=== PATIENT | male | born 1990 | race Caucasian/White ===

== ENCOUNTER 2023-09-22 18:17 | Emergency (ER) | payer SELFPAY ==
--- NOTE | ~2023-09-22 | XR_ITS ---
EXAMINATION: XR LUMBOSACRAL SPINE CLINICAL INFORMATION: Pain. COMPARISON: None available. TECHNIQUE: Three views of the lumbosacral spine. FINDINGS: S-shaped thoracolumbar curvature with right-sided apex at the level of L2. Grade 2 anterolisthesis of L4 on L5 with bilateral L4 pars defects. No evidence of acute compression deformity. Intervertebral disc height loss in the lower lumbar spine with mild facet arthropathy leading to certain degree of neural foraminal encroachment. Symmetric SI joints. No significant paraspinal soft tissue abnormality. XR/XR lumbar spine 2-3V IMPRESSION: 1. No acute compression deformity. 2. Grade 2 anterolisthesis of L4 on L5 with bilateral L4 pars defects. 3. Lower lumbar spondylosis.
[2023-09-22 18:46] VITALS: BP 125/70; PULSE 76; RESP 18; TEMP 36.6; O2SAT 96; BMI 46.2
--- NOTE | 2023-09-22 18:47 | ED_ITS ---
HPI - General Adult General Chief complaint: Back Pain/Injury Stated complaint: back pain, no injury Time Seen by Provider: 09/22/23 22:29 History of Present Illness ED Provider: Chun IRELAND narrative: The patient is a 33-year-old male who says that he has had back problems for many years. He says that he last saw someone about his back perhaps 10 years ago when he saw a chiropractor. 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 He says that sometimes he feels that pain radiates around both sides into his bladder. He has not feel that he is any bladder or bowel control problems however. He does not feel that he has any weakness or loss of sensation in his legs however. No fever, sweats, chills. Related Data Previous Rx's ?Medication ?Instructions ?Recorded cyclobenzaprine 10 mg tablet 10 mg PO TID PRN muscle spasm #14 09/22/23 tabs ibuprofen 600 mg tablet 600 mg PO Q6H PRN pain #20 tabs 09/22/23 Allergies Allergy/AdvReac Type Severity Reaction Status Date / Time No Known Allergies Allergy Verified 09/22/23 18:50 Review of Systems 2 Review of Systems: Yes all other systems are reviewed and are negative [facility] Social History Social History Advance Directives: No Advance Directives Information Provided: No Do you have a plan to hurt others: No Plan Physical Exam ED Vital Signs: Vital Signs - 24 hr 09/22/23 18:46 09/22/23 21:45 09/22/23 23:00 Temperature 98 F 97.3 F 97.3 F Pulse Rate 76 77 61 Respiratory Rate 18 16 16 Blood Pressure 125/70 117/87 124/82 Pulse Oximetry 96 99 98 Oxygen Delivery Method Room Air Room Air Room Air 09/22/23 23:19 Temperature 97.3 F Pulse Rate 61 Respiratory Rate 16 Blood Pressure 124/82 Pulse Oximetry 98 Oxygen Delivery Method Room Air BMI result Body Mass Index 46.2 Const Other: The patient is awake, alert, pleasant, cooperative. He does not appear in acute distress. HENMT Other: Face is symmetrical. Mucous membranes moist. Eyes Other: Pupils are round equal, conjunctivae are clear Neck Other: Moving his neck easily Resp Effort & Inspection: normal respiratory effort Auscultation: clear to auscultation bilaterally Cardio Rate: regular rate Rhythm: regular rhythm Heart sounds: S1 normal heart sound present and S2 normal heart sound present GI Other: Abdomen is soft and nontender Back/Spine/Pelvis Other: Diffuse bilateral lower back tenderness. Skin Other: Skin is dry and unremarkable Neuro Other: The patient is awake and alert with a normal mental status. He has intact strength and sensation in the lower extremities. He walks without footdrop. 2+ reflexes of the knees and ankles. Extrem Other: No peripheral edema Course Course Course Narrative: RME performed by Prachi Roe PA-C. Patient is a 33 year old assigned male at presenting to the emergency department with low back pain that radiates into his abdomen. Detailed physical exam and review of systems are deferred to the pre billing clinician. Labs and imaging ordered. Patient placed back in the waiting room pending room availability and results. Medical Decision Making Medical Decision Making MDM Narrative: The patient is a very pleasant 33-year-old who presents with worsening chronic low back pain. He describes bilateral low back pain that radiates down both legs. He denies any bowel or bladder control symptoms. No saddle anesthesia. He has no neurological deficits on exam. Bladder scan showed a bladder volume of 200 mL. The plain films of the lumbar spine show grade 2 anterolisthesis of L4 over L5. I suspect this may be related patient's pain syndrome. The patient is a very pleasant 33-year-old with worsening chronic low back pain. He has not exhibiting any red flags to suggest an infectious process or a neurosurgical emergency. I suspect his pain is probably related to the anterolisthesis apparent on his plain films. The patient is currently in the process of applying for [employer]. He does not have a primary care doctor. The patient is encouraged to continue his attempts at getting insurance and to get a primary care doctor. He will be given the name of Dr. Farley as I think he should see a back doctor to discuss the findings of anterolisthesis on his plain films to determine if this finding is related to his pains. The patient will be advised to use ibuprofen and acetaminophen as needed for pain. He is given a prescription for cyclobenzaprine which he may use when he has not working or driving. Lab Data 09/22/23 19:10 09/22/23 19:10 Labs: Lab Results 09/22/23 Range/Units 19:10 WBC 13.0 H (4.8-10.8) X10*3/uL RBC 4.75 (4.60-5.80) X10*6/uL Hgb 15.6 (14.0-18.0) g/dl Hct 42.7 (42.0-52.0) % MCV 89.9 (80.0-98.0) fL MCH 32.8 (27.0-33.0) pg MCHC 36.5 H (31.0-36.0) g/dl RDW 11.7 (11.0-16.0) % Plt Count 257 (160-400) X10*3/uL MPV 9.4 (9.4-12.4) fL Immature Gran % (Auto) 0.5 H (0.0-0.4) % Neut % (Auto) 62.3 (45-73) % Lymph % (Auto) 26.9 (20-40) % Ripley % (Auto) 7.3 (2-11) % Eos % (Auto) 2.5 (0-4) % Baso % (Auto) 0.5 (0-2) % Lymph # (Auto) 3.5 (1.2-4.9) X10*3/uL Ripley # (Auto) 1.0 (0.1-1.2) X10*3/uL Eos # (Auto) 0.3 (0.0-0.4) X10*3/uL Baso # (Auto) 0.1 (0.0-0.2) X10*3/uL Abs Immat Gran (auto) 0.06 H (0.00-0.03) X10*3/uL Absolute Neuts (auto) 8.1 (2.0-8.3) x10*3/uL Absolute Nucleated RBC 0.000 (0.0-0.012) X10*3/uL Nucleated RBC % (auto) 0.0 (0.0-0.2) /100WBC Sodium 141 (135-145) mmol/L Potassium 4.0 (3.3-5.1) mmol/L Chloride 110 H (96-108) mmol/L Carbon Dioxide 21 L (22-29) mmol/L Anion Gap 14 (12-20) BUN 10 (9-16) mg/dL Creatinine 0.83 (0.5-1.4) mg/dL Estim Creat Clear Calc 161.5 Estimated GFR > 60 Random Glucose 93 (60-115) mg/dL Calcium 9.4 (8.4-10.2) mg/dL Magnesium 2.0 (1.6-2.6) mg/dL Total Bilirubin 0.3 (0.0-1.0) mg/dL AST 20 (5-37) U/L ALT 19 (0-40) U/L Alkaline Phosphatase 60 (39-117) U/L Total Protein 7.2 (6.5-8.0) g/dL Albumin 4.2 (3.5-5.0) g/dL Discharge Plan Discharge Clinical Impression: Low back pain with bilateral sciatica, Anterolisthesis of lumbar spine Patient Disposition: Home, Self-Care Instructions: Acute Low Back Pain (ED), Spondylolisthesis (ED) Additional Instructions: The x-ray of your lumbar spine shows a misalignment of your L4 above your L5 vertebra called anterolisthesis. This may be part of the reason why you are having shows problems with your lower back. The most important thing for you to do is to try to get into see some kind of a back doctor. I have given you the contact information for Dr. Farley, a spine surgeon. I have also given you the number of an orthopedic office called [facility] in [place]. They have back doctors as well. Please plan on contacting either of these offices to try to make follow up appointment to discuss your back pain and the findings on your x-ray. Also please try to ensure that your insurance is valid and also please work on getting a primary care doctor. As much as you can please try to avoid significant lifting or bending. On a regular day you may use acetaminophen (Tylenol) and ibuprofen as needed for pain. I have sent a prescription for a medication called cyclobenzaprine which you may use if you were not working or driving. This medicine can make you drowsy. Return to the emergency room if significantly worse. Prescriptions: New ibuprofen 600 mg tablet 600 mg PO Q6H PRN (Reason: pain) Qty: 20 0RF cyclobenzaprine 10 mg tablet 10 mg PO TID PRN (Reason: muscle spasm) Qty: 14 0RF Referrals: [facility] [Provider Group] (low back pain with grade 2 anterolisthesis) Victor M Farley MD, PhD [Physician] - (low back pain with grade 2 anterolisthesis) Interventions: ED Discharge Assessment Last Done: 09/22/23 23:19 Discharge Date/Time: 09/22/23 23:19 Print Language: Azerbaijani
[2023-09-22 19:16] LABS: Basophils Absolute Auto 0.1 X10*3/uL (0.0-0.2); Basophils Percent Auto 0.5 % (0-2); Eosinophils Absolute Auto 0.3 X10*3/uL (0.0-0.4); Eosinophils Percent Auto 2.5 % (0-4); Hematocrit 42.7 % (42.0-52.0); Hemoglobin 15.6 g/dl (14.0-18.0); Imm Gran Abs Auto 0.06 X10*3/uL (0.00-0.03); Imm Gran Pct Auto 0.5 % (0.0-0.4); Lymphocytes Absolute Auto 3.5 X10*3/uL (1.2-4.9); Lymphocytes Percent Auto 26.9 % (20-40); MANUAL DIFF FLAG NO; Mean Corpuscular HGB Conc 36.5 g/dl (31.0-36.0); Mean Corpuscular Hemoglobin 32.8 pg (27.0-33.0); Mean Corpuscular Volume 89.9 fL (80.0-98.0); Mean Platelet Volume 9.4 fL (9.4-12.4); Monocytes Percent Auto 7.3 % (2-11); Neutrophils Absolute Auto 8.1 x10*3/uL (2.0-8.3); Neutrophils Percent Auto 62.3 % (45-73); Platelet Count 257 X10*3/uL (160-400); Red Blood Count 4.75 X10*6/uL (4.60-5.80); Red Cell Distribution Width 11.7 % (11.0-16.0)
[2023-09-22 19:31] LABS: Alanine Aminotransferase 19 U/L (0-40); Albumin Level 4.2 g/dL (3.5-5.0); Alkaline Phosphatase 60 U/L (39-117); Anion Gap 14 (12-20); Aspartate Amino Transferase 20 U/L (5-37); Bilirubin Total 0.3 mg/dL (0.0-1.0); Blood Urea Nitrogen 10 mg/dL (9-16); Calcium 9.4 mg/dL (8.4-10.2); Carbon Dioxide 21 mmol/L (22-29); Chloride 110 mmol/L (96-108); Creatinine Clr Calc Pharmacy 161.5; Estimated Glomerular Filt Rate > 60; Glucose Random 93 mg/dL (60-115); Sodium 141 mmol/L (135-145); Total Protein 7.2 g/dL (6.5-8.0)
[2023-09-22 21:45] VITALS: BP 117/87; PULSE 77; RESP 16; TEMP 36.3; O2SAT 99
[2023-09-22 23:00] VITALS: BP 124/82; PULSE 61; RESP 16; TEMP 36.3; O2SAT 98
[2023-09-22 23:19] VITALS: BP 124/82; PULSE 61; RESP 16; TEMP 36.3; O2SAT 98
== END 2023-09-22 23:19 | disposition home or self-care (01) ==
PROVIDERS: Physician Assistant Medical; Emergency Provider Emergency Medicine
DX: M54.41 Lumbago with sciatica, right side (principal); M54.42 Lumbago with sciatica, left side; M79.605 Pain in left leg; M79.604 Pain in right leg; R39.89 Other symptoms and signs involving the genitourinary system; Z79.899 Other long term (current) drug therapy
CPT/HCPCS: 36415; 51798; 72100; 80053; 83735; 85025; 99283; 99284